=== PATIENT | female | born 1940 | race Caucasian/White ===

== ENCOUNTER → 2017-08-26 | Outpatient (CLI) | payer MEDICARE, OTHER ==
[~2017-08-26] MED LIST: AMLO5TAB2 PO; LOSA25TA5 PO; MULT-658 PO; POTA99TA2 PO; PRED5TAB PO; SIMV5TAB5 PO
== END | disposition home or self-care (01) ==
LOC: CFH 09:31
PROVIDERS: ATTEND Nurse Practitioner Family
DX: Z13.820 Encounter for screening for osteoporosis (principal); M81.0 Age-related osteoporosis without current pathological fracture
CPT/HCPCS: 77080

== ENCOUNTER → 2018-05-07 | Outpatient (CLI) | payer MEDICARE, OTHER ==
[~2018-05-07] MED LIST changes: +OMNIPAQUE 350 MG/ML, 100ML BOTTLE ONE
== END | disposition home or self-care (01) ==
LOC: CFH 10:04
PROVIDERS: ATTEND Nurse Practitioner Family
DX: K76.89 Other specified diseases of liver (principal); N83.202 Unspecified ovarian cyst, left side; M19.032 Primary osteoarthritis, left wrist; R19.7 Diarrhea, unspecified
CPT/HCPCS: 74177; Q9967

== ENCOUNTER → 2018-09-16 | Outpatient (CLI) | payer MEDICARE, OTHER ==
[~2018-09-16] MED LIST changes: -AMLO5TAB2 PO; +AMLO5TAB7 PO; -LOSA25TA5 PO; +LOSA25TA6 PO; -OMNIPAQUE 350 MG/ML, 100ML BOTTLE ONE
== END | disposition home or self-care (01) ==
LOC: CFH 09:17
PROVIDERS: ATTEND Nurse Practitioner Family
DX: I08.3 Combined rheumatic disorders of mitral, aortic and tricuspid valves (principal); I10 Essential (primary) hypertension; Z85.3 Personal history of malignant neoplasm of breast
CPT/HCPCS: 93306

== ENCOUNTER 2019-02-20 01:08 | Inpatient (IN) | payer MEDICARE, OTHER ==
[~2019-02-20] VITALS: Ht 162.6 cm; Wt 82.2 kg
[~2019-02-20 01:08] MED LIST changes: +AMLO-150 PO; -AMLO5TAB7 PO; +LOSA25TA25 PO; -LOSA25TA6 PO; +SIMV5TAB14 PO; -SIMV5TAB5 PO
[2019-02-20] MEDS ORDERED: FAMOTIDINE 20 MG/2 ML IVP ONE (01:30)
[2019-02-20] MEDS ORDERED: ONDANSETRON 2MG/ML, 2ML IVPush ONE (01:30)
[2019-02-20] MEDS ORDERED: HYDROmorphone 2 MG/ML, 1ML IVPush PRN ×2 (01:30→08:00)
--- NOTE | 2019-02-20 01:32 | NUR ---
78 Y/O FEMALE BIB [facility] AFTER EXPERIENCING ABD PAIN FOR THE PAST SEVERAL DAYS. PT STATES SHE WAS ALSO EXPERIENCING FEVER/CHILLS, N/V/D ACCOMPANIED WITH THE ABD PAIN. THE PT REPORTS THE PAIN IS PERIUMBILICAL, SHE HAS AN UMBILICAL HERNIA THAT OFTEN CAUSES PAIN. HER GI PHYSCIAN IS CHOOSING TO NOT TO DO SURGERY FOR IT AT THIS TIME. SHE STATES THE PAIN HAS GOTTEN WORSE THIS EVENING WHICH PROMPTED HER VISIT TONIGHT. EMS ESTABLISHED AN IV AND ADMINISTERED 4 MG OF ZOFRAN IV, 100 MCG OF FENTANYL. EKG SHOWS NSR WITH NO ECTOPY NOTED. VITALS STABLE. PT C/O OF BLOOD PRESSURE CUFF BEING TOO TIGHT, MOVED TO THE WRIST FOR COMFORT, PT STILL COMPLAINING. DR. MANCIA HAS SEEN THE PATIENT. PT ALSO REFUSING TO PUT A GOWN ON, SHE REQUESTS TO LEAVE HER CLOTHES ON. PT EDUCATED ON THE REASONING FOR THE GOWN, STILL REFUSES. CALL LIGHT WITHIN REACH. WILL CONTINUE TO MONITOR.
[2019-02-20] MEDS ORDERED: HYDROmorphone 1 MG/ML, 1ML VIAL ONE ×2 (01:46→08:18)
[2019-02-20] MEDS ORDERED: FAMOTIDINE 20 MG/2 ML ONE (01:46)
--- NOTE | 2019-02-20 01:55 | NUR ---
PT MEDICATED PER EMAR, 5 RIGHTS ADDRESSED.
[2019-02-20 02:05] LABS: BASOPHILS # (AUTO) 0.03 x10^3/uL (0-0.1); BASOPHILS % (AUTO) 0 % (0-1); EOSINOPHILS # (AUTO) 0.14 x10^3/uL (0-0.4); EOSINOPHILS % (AUTO) 2 % (1-7); LYMPHOCYTES # (AUTO) 1.58 x10^3/uL (1-3.4); LYMPHOCYTES % (AUTO) 23 % (22-44); MD NO; MEAN CORPUSCULAR HEMOGLOBIN 28.4 pg (27.0-34.8); MEAN CORPUSCULAR HGB CONC 32.5 g/dL (32.4-35.8); MEAN CORPUSCULAR VOLUME 87.3 fL (80-100); MEAN PLATELET VOLUME 7.7 fL (7.4-10.4); MONOCYTES # (AUTO) 0.53 x10^3/uL (0.2-0.8); MONOCYTES % (AUTO) 8 % (2-9); NEUTROPHILS # (AUTO) 4.59 x10^3/uL (1.8-6.8); NEUTROPHILS % (AUTO) 67 % (42-75); PLATELET COUNT 361 x10^3/uL (130-400); RED BLOOD COUNT 4.34 x10^6/uL (3.82-5.3); RED CELL DISTRIBUTION WIDTH 16.2 % (9.6-15.2)
[2019-02-20 02:08] LABS: ALANINE AMINOTRANSFERASE 16 U/L (12-78); ANION GAP 8 mmol/L (5-15); CALCIUM 9.2 mg/dL (8.5-10.1); CHLORIDE 114 mmol/L (98-107); CREATININE 0.51 mg/dL (0.55-1.02)
[2019-02-20 02:12] LABS: ALKALINE PHOSPHATASE 97 U/L (45-117); BILIRUBIN,TOTAL 0.7 mg/dL (0.2-1.0); TOTAL PROTEIN 6.2 g/dL (6.4-8.2); TROPONIN I < 0.015 ng/mL (0.000-0.045)
--- NOTE | 2019-02-20 02:26 | NUR ---
PT TO CT
[2019-02-20] MEDS ORDERED: OMNIPAQUE 350 MG/ML, 100ML BOTTLE ONE (02:37)
--- NOTE | 2019-02-20 02:51 | NUR ---
PT BACK FROM CT. STATES SHE DIDN'T LIKE THE WAY THE CONTRAST MADE HER FEEL, BUT DENIES COMPLAINTS. ALL VITALS STABLE. CALL LIGHT WITHIN REACH. FAMILY AT BEDSIDE. AWAITING CT READ AT THIS TIME.
--- NOTE | 2019-02-20 03:21 | NUR ---
DR. MANCIA AT BEDSIDE UPDATING PT ON POC
[2019-02-20] MEDS ORDERED: AMLO-150 PO (03:22)
--- NOTE | 2019-02-20 03:46 | NUR ---
PT ASSISTED TO BEDSIDE COMMODE. BACK TO BED WITHOUT DIFFICULTY. PT STATES PAIN IS UNDER CONTROL AT THIS TIME. VITALS STABLE. WILL CONTINUE TO MONITOR.
--- NOTE | 2019-02-20 04:21 | NUR ---
14 FR NG TUBE PLACED IN RIGHT NARE WITHOUT DIFFICULTY. STOMACH CONTENTS ASPIRATED WITH SUCTION. PT TOLERATED WELL. PT TO BE ADMITTED. AWAITING FOR BED AT THIS TIME.
[2019-02-20] MEDS ORDERED: morphine SULFATE 10 MG/ML, 1ML IVPush PRN (04:30)
[2019-02-20] MEDS ORDERED: hydrALAzine 20 MG/ML, 1ML IVPush PRN (04:30)
[2019-02-20] MEDS ORDERED: ONDANSETRON 2MG/ML, 2ML IVPush PRN (04:30)
--- NOTE | 2019-02-20 05:05 | NUR ---
REPORT TO NEHA MCCOY
--- NOTE | 2019-02-20 05:32 | NUR ---
Patient/Caregiver given discharge instructions and they have confirmed that they understand the instructions. Patient ambulatory with steady gait.
[2019-02-20] MEDS: SODIUM CHLORIDE 0.9% 1,000 ML IV SCH ×2 (05:48→19:00)
[2019-02-20 06:00] VITALS: BP 190/64
[2019-02-20 06:03] VITALS: BP 190/64
[2019-02-20] MEDS ORDERED: MIDAZOLAM 1 MG/ML, 2ML ONE (06:41)
[2019-02-20] MEDS ORDERED: FENTANYL PF 250 MCG/5ML ONE (06:41)
[2019-02-20] MEDS ORDERED: LIDOCAINE 2%, 6 ML JEL.PF.APP MM ONE (06:46)
[2019-02-20] MEDS ORDERED: DEXAMETHASONE 4 MG/ML, 1ML ONE (07:03)
[2019-02-20] MEDS ORDERED: ONDANSETRON 2MG/ML, 2ML ONE (07:03)
[2019-02-20] MEDS ORDERED: GLYCOPYRROLATE 0.2MG/1ML, 5ML ONE (07:03)
[2019-02-20] MEDS ORDERED: CEFAZOLIN 1,000 MG ONE (07:03)
[2019-02-20] MEDS ORDERED: NEOSTIGMINE 1 MG/ML, 10ML ONE (07:03)
[2019-02-20] MEDS ORDERED: PHENYLEPHRINE 10 MG/ML ONE (07:03)
[2019-02-20] MEDS ORDERED: BUPIVACAINE/EPI 0.5% 1:200K INFIL ONE (07:50)
[2019-02-20] MEDS ORDERED: BUPIVACAINE/EPI 0.5% 1:200K ONE (07:52)
[2019-02-20] MEDS ORDERED: SUCCINYLCHOLINE 20 MG/ML, 10ML ONE (07:59)
[2019-02-20] MEDS ORDERED: PROPOFOL 10 MG/ML, 20ML ONE (07:59)
[2019-02-20] MEDS ORDERED: ROCURONIUM 10MG/ML,5ML ONE (07:59)
[2019-02-20] MEDS ORDERED: PROMETHAZINE 25 MG/ML, 1ML IV PRN (08:00)
[2019-02-20] MEDS ORDERED: OXYcodone 5 MG/5 ML ORAL.SOL UDC PO PRN (08:00)
[2019-02-20] MEDS ORDERED: hydrALAzine 20 MG/ML, 1ML IV PRN (08:00)
[2019-02-20] MEDS ORDERED: EPHEDRINE 50 MG/ML, 1ML IVPush PRN (08:00)
[2019-02-20] MEDS ORDERED: MORPHINE SULFATE 4 MG/ML, 1ML IVPush PRN (08:00)
[2019-02-20] MEDS ORDERED: MIDAZOLAM 1 MG/ML, 2ML IV PRN (08:00)
[2019-02-20] MEDS ORDERED: ALBUTEROL SULFATE 2.5 MG/3 ML NPPB PRN (08:00)
[2019-02-20] MEDS ORDERED: DIAZEPAM 5 MG/ML, 2ML IVPush PRN (08:00)
[2019-02-20] MEDS ORDERED: LABETALOL 5MG/ML, 20ML IV PRN (08:00)
[2019-02-20] MEDS ORDERED: PROMETHAZINE 12.5 MG SUPP PR PRN (08:00)
[2019-02-20] MEDS ORDERED: ONDANSETRON ODT 8 MG PO PRN (08:00)
[2019-02-20] MEDS ORDERED: HALOPERIDOL 5 MG/ML IV PRN (08:00)
[2019-02-20] MEDS ORDERED: MEPERIDINE/PF 25MG/0.5ML IVPush PRN (08:00)
[2019-02-20] MEDS ORDERED: ONDANSETRON 2MG/ML, 2ML IV PRN (08:00)
[2019-02-20] MEDS ORDERED: FENTANYL PF 100 MCG/2ML ONE (08:18)
[2019-02-20] MEDS: FENTANYL PF 100 MCG/2ML IV PRN ×2 (08:30→08:35)
[2019-02-20] MEDS ORDERED: hydrALAzine 20 MG/ML, 1ML ONE (08:35)
[2019-02-20] MEDS: AMLODIPINE 5 MG TABLET PO SCH (09:00)
[2019-02-20] MEDS: FAMOTIDINE 20 MG/2 ML IVPush SCH ×2 (09:38→20:06)
[2019-02-20] MEDS ORDERED: LACTATED RINGERS 1,000 ML IV SCH (09:43)
[2019-02-20 14:00] VITALS: BP 146/70
[2019-02-20] MEDS: morphine SULFATE 10 MG/ML, 1ML IV PRN (15:03)
[2019-02-20 19:05] VITALS: BP 170/81
[2019-02-20 20:06] VITALS: BP 150/68
[2019-02-20] MEDS: ONDANSETRON 2MG/ML, 2ML IVPush PRN (20:06)
[2019-02-21] MEDS: SODIUM CHLORIDE 0.9% 1,000 ML IV SCH ×2 (00:17→13:16)
[2019-02-21 00:51] VITALS: BP 161/68
[2019-02-21] MEDS: ENOXAPARIN 40 MG/0.4 ML SQ SCH (05:28)
[2019-02-21 05:57] LABS: BASOPHILS # (AUTO) 0.02 x10^3/uL (0-0.1); BASOPHILS % (AUTO) 0 % (0-1); EOSINOPHILS # (AUTO) 0.01 x10^3/uL (0-0.4); EOSINOPHILS % (AUTO) 0 % (1-7); LYMPHOCYTES # (AUTO) 1.49 x10^3/uL (1-3.4); LYMPHOCYTES % (AUTO) 17 % (22-44); MD NO; MEAN CORPUSCULAR HEMOGLOBIN 28.7 pg (27.0-34.8); MEAN PLATELET VOLUME 7.8 fL (7.4-10.4); MONOCYTES # (AUTO) 0.74 x10^3/uL (0.2-0.8); MONOCYTES % (AUTO) 9 % (2-9); NEUTROPHILS # (AUTO) 6.45 x10^3/uL (1.8-6.8); NEUTROPHILS % (AUTO) 74 % (42-75); PLATELET COUNT 333 x10^3/uL (130-400); RED BLOOD COUNT 4.15 x10^6/uL (3.82-5.3); RED CELL DISTRIBUTION WIDTH 15.8 % (9.6-15.2)
[2019-02-21 06:02] LABS: ALBUMIN 2.5 g/dL (3.4-5.0); ANION GAP 8 mmol/L (5-15); CALCIUM 8.9 mg/dL (8.5-10.1); CHLORIDE 111 mmol/L (98-107)
[2019-02-21 06:06] LABS: ALANINE AMINOTRANSFERASE 13 U/L (12-78); ALKALINE PHOSPHATASE 87 U/L (45-117); BILIRUBIN,TOTAL 0.5 mg/dL (0.2-1.0); CREATININE 0.33 mg/dL (0.55-1.02); TOTAL PROTEIN 5.7 g/dL (6.4-8.2)
[2019-02-21] MEDS: morphine SULFATE 10 MG/ML, 1ML IV PRN ×2 (06:11→14:36)
[2019-02-21] MEDS: ONDANSETRON 2MG/ML, 2ML IVPush PRN (06:21)
[2019-02-21 07:18] VITALS: BP 135/54
[2019-02-21] MEDS: AMLODIPINE 5 MG TABLET PO SCH ×3 (08:43→09:45)
[2019-02-21] MEDS: FAMOTIDINE 20 MG/2 ML IVPush SCH ×2 (08:43→19:46)
[2019-02-21] MEDS ORDERED: POTASSIUM CHLORIDE 20 MEQ TAB.ER.PRT PO ONE (09:30)
[2019-02-21 12:41] VITALS: BP 144/64
[2019-02-21 19:58] VITALS: BP 140/60
[2019-02-22] MEDS: SODIUM CHLORIDE 0.9% 1,000 ML IV SCH (01:27)
[2019-02-22 04:09] VITALS: BP 115/66
[2019-02-22] MEDS ORDERED: METOPROLOL 1 MG/ML, 5ML IVPush ONE (05:00)
[2019-02-22 05:14] VITALS: BP 124/75
[2019-02-22 05:14] LABS: BASOPHILS # (AUTO) 0.03 x10^3/uL (0-0.1); BASOPHILS % (AUTO) 0 % (0-1); EOSINOPHILS # (AUTO) 0.07 x10^3/uL (0-0.4); EOSINOPHILS % (AUTO) 1 % (1-7); LYMPHOCYTES # (AUTO) 1.75 x10^3/uL (1-3.4); LYMPHOCYTES % (AUTO) 21 % (22-44); MD NO; MEAN CORPUSCULAR HEMOGLOBIN 28.8 pg (27.0-34.8); MEAN CORPUSCULAR HGB CONC 33.1 g/dL (32.4-35.8); MEAN CORPUSCULAR VOLUME 87.3 fL (80-100); MEAN PLATELET VOLUME 7.9 fL (7.4-10.4); MONOCYTES # (AUTO) 0.72 x10^3/uL (0.2-0.8); MONOCYTES % (AUTO) 9 % (2-9); NEUTROPHILS # (AUTO) 5.64 x10^3/uL (1.8-6.8); NEUTROPHILS % (AUTO) 69 % (42-75); PLATELET COUNT 294 x10^3/uL (130-400)
[2019-02-22 05:26] LABS: ANION GAP 7 mmol/L (5-15); CALCIUM 8.7 mg/dL (8.5-10.1); CHLORIDE 113 mmol/L (98-107); CREATININE 0.34 mg/dL (0.55-1.02)
[2019-02-22] MEDS: ENOXAPARIN 40 MG/0.4 ML SQ SCH (06:12)
[2019-02-22 06:57] VITALS: BP 131/72
[2019-02-22] MEDS: FAMOTIDINE 20 MG/2 ML IVPush SCH ×2 (08:32→20:05)
[2019-02-22] MEDS: AMLODIPINE 5 MG TABLET PO SCH (08:32)
[2019-02-22] MEDS ORDERED: HYDROcodone/APAP 5/325 TABLET PO PRN (09:00)
[2019-02-22] MEDS ORDERED: AMLODIPINE 5 MG TABLET PO SCH (09:00)
[2019-02-22] MEDS: POTASSIUM CHLORIDE 20 MEQ TAB.ER.PRT PO SCH ×2 (11:46→20:05)
[2019-02-22 12:29] VITALS: BP 125/71
[2019-02-22] MEDS ORDERED: ACID1TAB7 PO (13:13)
[2019-02-22] MEDS ORDERED: POTA20TA6 PO ×2 (13:13)
[2019-02-22 15:48] LABS: TROPONIN I 0.033 ng/mL (0.000-0.045)
[2019-02-22] MEDS: LACTOBACILLUS CHEW TABLET PO SCH ×2 (16:42→20:06)
[2019-02-22 18:16] VITALS: BP 116/72
[2019-02-22] MEDS: CARVEDILOL 6.25 MG TABLET PO SCH (18:18)
[2019-02-22 19:05] VITALS: BP 115/69
[2019-02-22 20:47] LABS: TROPONIN I 0.036 ng/mL (0.000-0.045)
[2019-02-23 02:55] VITALS: BP 118/75
[2019-02-23] MEDS ORDERED: SODIUM CHLORIDE 0.9% 1,000 ML IV SCH (04:02)
[2019-02-23] MEDS: CARVEDILOL 6.25 MG TABLET PO SCH ×2 (05:43→18:16)
[2019-02-23] MEDS: ENOXAPARIN 40 MG/0.4 ML SQ SCH (05:44)
[2019-02-23 06:56] VITALS: BP 117/69
[2019-02-23 08:34] LABS: ANION GAP 4 mmol/L (5-15); CALCIUM 8.7 mg/dL (8.5-10.1); CHLORIDE 110 mmol/L (98-107)
[2019-02-23 08:35] LABS: CREATININE 0.28 mg/dL (0.55-1.02)
[2019-02-23] MEDS: FAMOTIDINE 20 MG/2 ML IVPush SCH ×2 (08:36→21:14)
[2019-02-23] MEDS: LACTOBACILLUS CHEW TABLET PO SCH ×3 (08:36→21:15)
[2019-02-23] MEDS: POTASSIUM CHLORIDE 20 MEQ TAB.ER.PRT PO SCH (09:00)
[2019-02-23] MEDS ORDERED: morphine SULFATE 10 MG/ML, 1ML IV PRN (09:00)
[2019-02-23] MEDS ORDERED: PROPOFOL 10 MG/ML, 20ML ONE (13:04)
[2019-02-23 14:04] VITALS: BP 120/70
[2019-02-23 18:15] VITALS: BP 134/79
[2019-02-23 19:08] VITALS: BP 119/61
[2019-02-24 01:21] VITALS: BP 134/64
[2019-02-24] MEDS: ENOXAPARIN 40 MG/0.4 ML SQ SCH (05:24)
[2019-02-24] MEDS: CARVEDILOL 6.25 MG TABLET PO SCH (05:24)
[2019-02-24 07:15] VITALS: BP 133/73
[2019-02-24] MEDS: LACTOBACILLUS CHEW TABLET PO SCH (09:14)
== END 2019-02-24 14:03 | disposition home health service (06) | DRG 330 ==
LOC: ED 01:28 → EDIP 03:32 → 4NOR 05:25 → 5SO 02-22 05:15 → DCLOUNGE 02-24 13:37
PROVIDERS: ADMIT Family Medicine; ATTEND Family Medicine
PROC: 0DT80ZZ Resection of Small Intestine, Open Approach (ICD-10-PCS; 2019-02-20)
PROC: 5A2204Z Restoration of Cardiac Rhythm, Single (ICD-10-PCS; 2019-02-20)
PROC: 0WUF0JZ Supplement Abdominal Wall with Synthetic Substitute, Open Approach (ICD-10-PCS; principal; 2019-02-20 07:00)
DX: K43.0 Incisional hernia with obstruction, without gangrene (principal); D68.69 Other thrombophilia; E44.0 Moderate protein-calorie malnutrition; E86.0 Dehydration; E87.6 Hypokalemia; I10 Essential (primary) hypertension; I48.91 Unspecified atrial fibrillation; K43.6 Other and unspecified ventral hernia with obstruction, without gangrene; R79.89 Other specified abnormal findings of blood chemistry; M19.90 Unspecified osteoarthritis, unspecified site; Z85.3 Personal history of malignant neoplasm of breast; Z87.891 Personal history of nicotine dependence; Z90.49 Acquired absence of other specified parts of digestive tract; Z88.1 Allergy status to other antibiotic agents; Z88.8 Allergy status to other drugs, medicaments and biological substances
CPT/HCPCS: 36415; 74177; 78452; 80048; 80053; 83605; 83735; 84484; 85025; 88307; 92960; 93005; 93306; 96374; 96375; 99285; G0378; J0690; J1100; J1170; J1650; J2250; J2405; J2704; J2710; J3010; Q9967; A9502; C1781; C9898; J0330; J0360; J2270; J2370; J3490; J7030

== ENCOUNTER → 2020-04-11 | Outpatient (CLI) | payer MEDICARE, OTHER ==
[~2020-04-11] MED LIST changes: +ACID1TAB7 PO; +IRON1TAB37 PO; +LISI-167 PO; +PANT40TA5 PO; +POTA20TA6 PO; +TRAM50TA2 PO
[2020-04-11 13:10] LABS: CALCIUM 8.2 mg/dL (8.5-10.1); CHLORIDE 114 mmol/L (98-107)
[2020-04-11 13:17] LABS: MEAN CORPUSCULAR HEMOGLOBIN 20.2 pg (27.0-34.8); MEAN CORPUSCULAR VOLUME 69.7 fL (80-100); PLATELET COUNT 320 x10^3/uL (130-400); RED BLOOD COUNT 2.96 x10^6/uL (3.82-5.3); RED CELL DISTRIBUTION WIDTH 22.3 % (9.6-15.2)
[2020-04-11 13:22] LABS: BASOPHILS # (AUTO) 0.01 x10^3/uL (0-0.1); BASOPHILS % (AUTO) 0 % (0-1); EOSINOPHILS % (AUTO) 3 % (1-7); LYMPHOCYTES # (AUTO) 1.11 x10^3/uL (1-3.4); LYMPHOCYTES % (AUTO) 33 % (22-44); MD MORPH REVIEW ONLY; MONOCYTES # (AUTO) 0.28 x10^3/uL (0.2-0.8); MONOCYTES % (AUTO) 9 % (2-9); NEUTROPHILS # (AUTO) 1.82 x10^3/uL (1.8-6.8); NEUTROPHILS % (AUTO) 55 % (42-75)
[2020-04-11 13:23] LABS: ANISOCYTOSIS 2+; HYPOCHROMIA 2+; MICROCYTOSIS 2+; OVALOCYTES 1+; POLYCHROMASIA 1+; TEAR DROPS 1+
[2020-04-11 13:25] LABS: ALANINE AMINOTRANSFERASE 13 U/L (12-78); ALBUMIN 2.8 g/dL (3.4-5.0); ALKALINE PHOSPHATASE 97 U/L (45-117); ANION GAP 9 mmol/L (5-15); BILIRUBIN,TOTAL 0.5 mg/dL (0.2-1.0); CREATININE 0.53 mg/dL (0.55-1.02); TOTAL PROTEIN 6.2 g/dL (6.4-8.2)
[2020-04-11 13:26] LABS: <PLATELET ESTIMATE> ADEQUATE; <PLT MORPHOLOGY> NORMAL PLT MORPH
== END | disposition home or self-care (01) ==
LOC: CFH 11:25
PROVIDERS: ATTEND Nurse Practitioner Family
DX: J90 Pleural effusion, not elsewhere classified (principal); I10 Essential (primary) hypertension; M05.9 Rheumatoid arthritis with rheumatoid factor, unspecified; R01.0 Benign and innocent cardiac murmurs; M25.50 Pain in unspecified joint
CPT/HCPCS: 36415; 71046; 80053; 83880; 84443; 85025

== ENCOUNTER 2021-02-22 06:09 | Observation (INO) | payer MEDICARE, OTHER ==
[~2021-02-22] VITALS: Ht 160 cm; Wt 74.3 kg
[~2021-02-22 06:09] MED LIST changes: +DILT180C53 PO; +DOXY100C2 PO; +FURO-93 PO; +METO25TA35 PO; -PANT40TA5 PO; +PANT40TA6 PO
[2021-02-22] MEDS: SODIUM CHLORIDE 0.9% 1,000 ML IV SCH ×3 (07:00→20:11)
[2021-02-22] MEDS ORDERED: RIVA20TA PO ×2 (07:18→07:20)
[2021-02-22] MEDS ORDERED: LOSA25TA25 PO (07:18)
[2021-02-22 07:23] VITALS: BP 154/85
[2021-02-22] MEDS ORDERED: LIDOCAINE-MPF 1%, 5ML ONE (07:44)
[2021-02-22] MEDS ORDERED: MIDAZOLAM 1 MG/ML, 5ML ONE (07:54)
[2021-02-22] MEDS ORDERED: FENTANYL PF 100 MCG/2ML ONE ×2 (07:54→08:50)
[2021-02-22] MEDS ORDERED: CEFAZOLIN 1,000 MG ONE (07:55)
[2021-02-22] MEDS ORDERED: CEFAZOLIN PMX 1GM/50ML 50 ML ONE (07:55)
[2021-02-22] MEDS ORDERED: LIDOCAINE 2%, 20ML ONE (07:55)
[2021-02-22 08:37] LABS: BASOPHILS % (AUTO) 1 % (0-1); EOSINOPHILS % (AUTO) 3 % (1-7); LYMPHOCYTES % (AUTO) 20 % (22-44); MEAN CORPUSCULAR HEMOGLOBIN 29.9 pg (27.0-34.8); MEAN PLATELET VOLUME 7.4 fL (7.4-10.4); MONOCYTES % (AUTO) 8 % (2-9); NEUTROPHILS % (AUTO) 68 % (42-75); PLATELET COUNT 273 x10^3/uL (130-400); RED BLOOD COUNT 4.61 x10^6/uL (3.82-5.3); RED CELL DISTRIBUTION WIDTH 15.3 % (9.6-15.2)
[2021-02-22 08:39] LABS: MD NO
[2021-02-22 08:49] LABS: ANION GAP 5 mmol/L (5-15); CALCIUM 10.2 mg/dL (8.5-10.1); CHLORIDE 114 mmol/L (98-107)
[2021-02-22 08:50] LABS: CREATININE 0.44 mg/dL (0.55-1.02)
[2021-02-22] MEDS ORDERED: LIDOCAINE 1%, 20ML ONE (09:10)
[2021-02-22] MEDS ORDERED: HOLD MEDICATION MC PRN (10:00)
[2021-02-22 13:34] VITALS: BP 140/67
[2021-02-22] MEDS: ACETAMINOPHEN 325 MG TABLET PO PRN ×2 (13:57→20:11)
[2021-02-22] MEDS: CEFAZOLIN PMX 1GM/50ML 50 ML IVPB SCH (16:20)
[2021-02-22 19:35] VITALS: BP 148/66
[2021-02-22] MEDS: POTASSIUM CHLORIDE 20 MEQ TAB.ER.PRT PO SCH (20:11)
[2021-02-22] MEDS: SODIUM CHLORIDE FLUSH 10ML SYR IVF SCH (20:11)
[2021-02-22] MEDS ORDERED: [UNRECOGNIZED DRUG - OTHER] PO SCH (21:00)
[2021-02-22] MEDS ORDERED: IRON CARBONYL PO SCH (21:00)
[2021-02-22] MEDS ORDERED: ASCORBIC ACID PO SCH (21:00)
[2021-02-23 00:20] VITALS: BP 138/57
[2021-02-23] MEDS: CEFAZOLIN PMX 1GM/50ML 50 ML IVPB SCH (00:30)
[2021-02-23] MEDS: SODIUM CHLORIDE 0.9% 1,000 ML IV SCH (06:09)
[2021-02-23 07:04] VITALS: BP 152/55
[2021-02-23 08:01] VITALS: BP 144/71
[2021-02-23] MEDS: POTASSIUM CHLORIDE 20 MEQ TAB.ER.PRT PO SCH (08:05)
[2021-02-23] MEDS: SODIUM CHLORIDE FLUSH 10ML SYR IVF SCH (08:06)
[2021-02-23] MEDS ORDERED: MULTIVITAMIN 1 TABLET PO SCH (09:00)
[2021-02-23] MEDS ORDERED: FUROSEMIDE 20 MG TABLET PO SCH (09:00)
[2021-02-23] MEDS ORDERED: PANTOPRAZOLE 40MG TABLET PO SCH (09:00)
[2021-02-23] MEDS ORDERED: LOSARTAN 50MG TABLET PO SCH (09:00)
[2021-02-23] MEDS ORDERED: DILTIAZEM CD 180 MG CAP.ER.24H PO SCH (10:00)
[2021-02-23] MEDS ORDERED: DILT180C53 PO (10:11)
[2021-02-23] MEDS ORDERED: ACET325T26 PO (10:11)
[2021-02-23] MEDS: ACETAMINOPHEN 325 MG TABLET PO PRN (12:43)
== END 2021-02-23 16:08 | disposition home or self-care (01) ==
LOC: CACL 06:09 → ORIP 09:42 → 5SO 09:54 → CACL 11:31 → 5SO 11:57 → DCLOUNGE 02-23 15:57
PROVIDERS: ADMIT Internal Medicine Cardiovascular Disease; ATTEND Internal Medicine Cardiovascular Disease
DX: I49.5 Sick sinus syndrome (principal); I48.0 Paroxysmal atrial fibrillation; D68.69 Other thrombophilia; I10 Essential (primary) hypertension; E66.9 Obesity, unspecified; R53.81 Other malaise; E78.5 Hyperlipidemia, unspecified; K43.6 Other and unspecified ventral hernia with obstruction, without gangrene; I65.29 Occlusion and stenosis of unspecified carotid artery; M19.012 Primary osteoarthritis, left shoulder; M06.9 Rheumatoid arthritis, unspecified; Z79.01 Long term (current) use of anticoagulants; Z79.899 Other long term (current) drug therapy
CPT/HCPCS: 33208; 36415; 71045; 71046; 80048; 85025; 96365; 96366; 97163; 99156; 99157; C1779; C1785; C1892; G0378; J0690; J2250; J3010; J3490